=== PATIENT | male | born 1960 | race Caucasian/White ===

== ENCOUNTER 2019-01-08 17:09 | Emergency (ER) | payer BC, OTHER ==
[2019-01-08 17:25] VITALS: BP 156/84
[2019-01-08] MEDS ORDERED: Fluorescein Sodium TOPICAL* 1 MG TEST STRIP OPHTHALMIC ONE (17:39)
[2019-01-08] MEDS ORDERED: Tetracaine 0.5% OPTH.SOL 4 ML* 1 DROP BTL LEFT EYE ONE (17:39)
[2019-01-08] MEDS ORDERED: Ciprofloxacin 0.3% OPTH.SOL* BTL LEFT EYE ONE (17:55)
--- NOTE | 2019-01-08 17:58 | UC ---
Eye Complaint HPI - HPI Summary HPI Summary: PATIENT WAS MOWING HIS LAWN THIS AFTERNOON WHEN HE FELT SOMETHING FLY INTO HIS LEFT EYE. HAS BEEN UNABLE TO GET IT OUT. EYE IS RED AND IRRITATED AND TEARING. NO PHOTOPHOBIA OR VISUAL DISTURBANCE. - History of Current Complaint Chief Complaint: UCEye Stated Complaint: FB EYE Time Seen by Provider: 01/08/19 17:34 Hx Obtained From: Patient Onset/Duration: Sudden Onset, Lasting Hours, Still Present Timing: Constant Severity Initially: Moderate Severity Currently: Moderate Pain Intensity: 7 Pain Scale Used: 0-10 Numeric Character: Foreign Body Sensation Aggravating Factor(s): Blinking Alleviating Factor(s): Nothing Associated Signs And Symptoms: Positive: Drainage (Clear). Negative: Photophobia, Vision Impairment Bilateral - Allergies/Home Medications Allergies/Adverse Reactions: Allergies Allergy/AdvReac Type Severity Reaction Status Date / Time No Known Allergies Allergy Verified 01/08/19 17:25 Home Medications: Home Medications Fenofibrate,Micronized [Fenofibrate] 1 tab PO DAILY 01/08/19 [History Confirmed 01/08/19] PMH/Surg Hx/FS Hx/Imm Hx Endocrine History: Dyslipidemia - Surgical History Surgical History: Yes Surgery Procedure, Year, and Place: bilateral knee surgery - Family History Known Family History: Positive: Non-Contributory - Social History Alcohol Use: Occasionally Substance Use Type: None Smoking Status (MU): Never Smoked Tobacco Review of Systems All Other Systems Reviewed And Are Negative: Yes Constitutional: Positive: Negative Eyes: Positive: Drainage, Eye Redness Respiratory: Positive: Negative Cardiovascular: Positive: Negative Gastrointestinal: Positive: Negative Physical Exam Triage Information Reviewed: Yes Appearance: Well-Appearing, Well-Nourished, Pain Distress - MILD Vital Signs: Initial Vital Signs Temp 98.9 F 01/08/19 17:22 Pulse 98 01/08/19 17:22 Resp 18 01/08/19 17:22 BP 156/84 01/08/19 17:22 Pulse Ox 97 01/08/19 17:22 Vital Signs Reviewed: Yes Eyes: Positive: Conjunctiva Inflamed - LEFT, Discharge - CLEAR DRAINAGE LEFT EYE , Other: - PERRL, EOMI. FLUORESCEIN UPTAKE 7 O'CLOCK POSITION - PUNCTATE ENT: Positive: Hearing grossly normal Neck: Positive: Supple Respiratory: Positive: No respiratory distress, No accessory muscle use Cardiovascular: Positive: Pulses Normal Abdomen Description: Positive: Soft Musculoskeletal: Positive: No Edema Neurological: Positive: Alert Psychological: Positive: Age Appropriate Behavior Skin: Negative: Rashes Eye Complaint Course/Dx - Course Course Of Treatment: SALINE IRRIGATION PERFORMED BY RN. NO FOREIGN BODY SEEN ON PHYSICAL EXAM. PATIENT DOES HAVE A PUNCTATE SIZED CORNEAL ABRASION NOTED WITH FLUORESCEIN UPTAKE. WILL TREAT WITH ANTIBIOTIC EYEDROPS. FOLLOW-UP WITH OPHTHALMOLOGY IF NOT IMPROVING OVER THE NEXT COUPLE OF DAYS. - Differential Dx/Diagnosis Provider Diagnosis: Corneal abrasion, left Discharge ED - Sign-Out/Discharge Documenting (check all that apply): Patient Departure All imaging exams completed and their final reports reviewed: No Studies - Discharge Plan Condition: Stable Disposition: HOME Prescriptions: Ciprofloxacin 0.3% OPTH.ENOC* [Cipro 0.3% Opth*] 1 drop LEFT EYE Q4H #1 btl Patient Education Materials: Corneal Abrasion (ED) Referrals: Franklin Goldberg MD [Primary Care Provider] - If Needed Jimmie Yun MD [Medical Doctor] - If Needed Additional Instructions: YOU HAVE A SMALL CORNEAL ABRASION IN YOUR LEFT EYE. USE THE CIPRO DROPS EVERY 4 HOURS WHILE AWAKE FOR THE NEXT 7 DAYS. IF YOUR SYMPTOMS ARE NOT IMPROVED IN 2 DAYS FOLLOW-UP WITH AN EYE DOCTOR. - Billing Disposition and Condition Condition: STABLE Disposition: Home
== END 2019-01-08 18:10 | disposition home or self-care (01) ==
LOC: UCEAST 17:09
DX: S05.02XA Injury of conjunctiva and corneal abrasion without foreign body, left eye, initial encounter (principal); X58.XXXA Exposure to other specified factors, initial encounter; Y93.H2 Activity, gardening and landscaping; Y92.008 Other place in unspecified non-institutional (private) residence as the place of occurrence of the external cause; E78.5 Hyperlipidemia, unspecified
CPT/HCPCS: 99202; A9270-GY; G0463